=== PATIENT | male | born 1970 | race Two or more races ===

== ENCOUNTER 2022-06-13 13:10 | Inpatient (IN) | payer OTHER, BC ==
[~2022-06-13 13:10] MED LIST: Iopamidol 370 76% 100 ML VIAL ONE
[2022-06-13] MEDS ORDERED: CEFAZOLIN 1 GM VIAL ONE (13:43)
[2022-06-13] MEDS ORDERED: Boostrix 0.5 ML (Tdap) VIAL (>/=7 yrs of age) ONE (13:43)
[2022-06-13] MEDS ORDERED: Ondansetron PF 4 MG/2 ML Vial ONE (13:43)
[2022-06-13 14:15] LABS: #Eosinphils 0.2 thou/uL (0.0-0.7); #Monocytes 0.9 thou/uL (0.11-0.59); #Neutrophils 9.5 thou/uL (1.40-6.50); %Basophils 0.2 % (0.0-1.0); %Eosinophils 1.5 % (0.0-10.0); %Monocytes 6.6 % (0.0-10.0); %Neutrophils 69.7 % (42.0-75.0); Hemoglobin 14.6 g/dL (14.0-18.0); Mean Corpuscular HGB CONC 34.6 g/dL (32.0-36.0); Mean Corpuscular Hemoglobin 32.3 pg (27.0-31.0); Mean Corpuscular Volume 93.5 fl (78.0-98.0); Mean Platelet Volume 7.9 fL (7.4-10.4); Platelet Count 196 10x3/uL (130-400); RBC Distribution Width 11.9 % (11.5-14.5); Red Blood Cell (RBC) Count 4.53 mill/uL (4.70-6.10); White Blood Cell (WBC) Count 13.6 10x3/uL (4.8-10.8)
[2022-06-13 14:24] LABS: INR-International Normal Ratio 1.1; PTT 26.2 sec (22.9-36.1); Prothrombin Time 14.3 sec (12.0-14.7)
[2022-06-13 14:35] LABS: ALT (SGPT) 17 U/L (8-55); AST (SGOT) 24 U/L (5-34); Albumin 3.7 g/dL (3.5-5.0); Alkaline Phosphatase 82 U/L (40-110); Anion Gap 12 mmol/L (10-20); BUN (Urea Nitrogen) 17 mg/dL (8.4-25.7); Bilirubin, Total 0.9 mg/dL (0.2-1.2); Calc. Creatinine Clearance 0 mL/min (70-130); Calcium 8.4 mg/dL (7.8-10.44); Carbon Dioxide 22 mmol/L (22-29); Chloride 110 mmol/L (98-107); Estimated GFR 88; Globulin 2.7 g/dL (2.4-3.5); Glucose 93 mg/dL (70-105); Potassium 3.6 mmol/L (3.5-5.1); Protein, Total 6.4 g/dL (6.0-8.3); Sodium 140 mmol/L (136-145)
[2022-06-13] MEDS ORDERED: Ipratropium/Albuterol 3 ML NEB NEB PRN (14:51)
[2022-06-13] MEDS ORDERED: Cyclobenzaprine 10 MG TAB PO PRN (14:51)
[2022-06-13] MEDS ORDERED: Lactated Ringer's 1,000 ML IV SCH (15:00)
[2022-06-13] MEDS ORDERED: Acetaminophen 500 MG TAB PO SCH (15:00)
[2022-06-13] MEDS ORDERED: Fentanyl 100 MCG/2 ML VIAL ONE (15:14)
[2022-06-13] MEDS ORDERED: TETANUS, DIPHTHERIA TOX,ADULT (TDVAX) 0.5 ML VIAL IM ONE (16:37)
[2022-06-13] MEDS ORDERED: Ondansetron PF 4 MG/2 ML Vial IVP PRN (16:37)
[2022-06-13 16:53] LABS: Bilirubin Negative (Negative); Blood, Urine Negative (Negative); Clarity Clear (Clear); Glucose, Urine (Dipstick) Normal (Negative); Ketone, Urine Negative (Negative); Leukocyte Negative Leu/uL (Negative); Nitrite Negative (Negative); Protein, Urine (Dipstick) Negative (Neg-Trace); Specific Gravity, Urine 1.046 (1.002-1.036); Urobilinogen Normal mg/dL (Less than 2)
[2022-06-13] MEDS: traMADol HCl 50 MG TAB PO SCH ×2 (18:22→22:54)
[2022-06-13] MEDS: Sodium Chloride 0.9% 1,000 ML IV SCH (18:22)
[2022-06-13] MEDS: Famotidine/PF 20 mg/2ml Vial SLOW IVP SCH (20:29)
[2022-06-13] MEDS: Morphine 2 MG/ML VIAL SLOW IVP PRN ×2 (20:30→22:55)
[2022-06-13] MEDS: Senokot S 8.6-50 MG TAB PO SCH (22:40)
[2022-06-13] MEDS: traMADol HCl 50 MG TAB PO PRN (22:55)
[2022-06-14] MEDS ORDERED: Cyclobenzaprine 10 MG TAB PO PRN (00:19)
[2022-06-14] MEDS ORDERED: Ketorolac Tromethamine 30 MG/ML VIAL IVP SCH (00:30)
[2022-06-14] MEDS: Morphine 2 MG/ML VIAL SLOW IVP PRN (00:31)
[2022-06-14 01:06] LABS: SARS-CoV-2 NAA Rapid Test Not Detected (NotDetected)
[2022-06-14] MEDS: Sodium Chloride 0.9% 1,000 ML IV SCH (02:53)
[2022-06-14] MEDS: traMADol HCl 50 MG TAB PO SCH ×3 (05:53→18:16)
[2022-06-14] MEDS: traMADol HCl 50 MG TAB PO PRN (05:53)
[2022-06-14] MEDS: Ketorolac Tromethamine 30 MG/ML VIAL IVP SCH ×3 (05:54→18:16)
[2022-06-14 06:45] LABS: #Eosinphils 0.1 thou/uL (0.0-0.7); #Lymphocytes 1.8 thou/uL (1.20-3.40); #Neutrophils 6.1 thou/uL (1.40-6.50); %Basophils 0.2 % (0.0-1.0); %Eosinophils 1.7 % (0.0-10.0); %Lymphocytes 19.5 % (21.0-51.0); %Monocytes 10.8 % (0.0-10.0); %Neutrophils 67.7 % (42.0-75.0); Hemoglobin 13.5 g/dL (14.0-18.0); Mean Corpuscular HGB CONC 33.7 g/dL (32.0-36.0); Mean Corpuscular Hemoglobin 31.9 pg (27.0-31.0); Mean Corpuscular Volume 94.6 fl (78.0-98.0); Mean Platelet Volume 7.6 fL (7.4-10.4); Platelet Count 178 10x3/uL (130-400); Red Blood Cell (RBC) Count 4.22 mill/uL (4.70-6.10)
[2022-06-14 07:12] LABS: Anion Gap 11 mmol/L (10-20); BUN (Urea Nitrogen) 15 mg/dL (8.4-25.7); Calc. Creatinine Clearance 111 mL/min (70-130); Carbon Dioxide 22 mmol/L (22-29); Chloride 109 mmol/L (98-107); Estimated GFR 80; Glucose 99 mg/dL (70-105); Magnesium 1.8 mg/dL (1.6-2.6); Phosphorus 3.6 mg/dL (2.3-4.7); Potassium 3.6 mmol/L (3.5-5.1); Sodium 138 mmol/L (136-145)
[2022-06-14] MEDS: Senokot S 8.6-50 MG TAB PO SCH ×2 (09:50→21:33)
[2022-06-14] MEDS: Gabapentin 300 MG CAP PO SCH ×3 (09:50→21:32)
[2022-06-14] MEDS: Famotidine/PF 20 mg/2ml Vial SLOW IVP SCH ×2 (09:50→21:32)
[2022-06-14] MEDS: Polyethylene Glycol 3350 17 GM Packet PO SCH (09:50)
[2022-06-14] MEDS ORDERED: Bacitracin 1 PK TOP SCH (10:00)
[2022-06-14] MEDS: CEFAZOLIN 2 GM in Sodium Chloride 0.9% 100 ML IVPB SCH ×2 (14:37→21:33)
[2022-06-14] MEDS: Silver Sulfadiazine 50 GM JAR TP SCH (14:38)
[2022-06-14] MEDS ORDERED: Scopolamine 1.5 mg/72 hour Patch TD SCH (17:30)
[2022-06-15] MEDS: traMADol HCl 50 MG TAB PO SCH ×5 (00:02→23:10)
[2022-06-15] MEDS: Ketorolac Tromethamine 30 MG/ML VIAL IVP SCH ×2 (00:02→05:44)
[2022-06-15] MEDS: CEFAZOLIN 2 GM in Sodium Chloride 0.9% 100 ML IVPB SCH ×3 (05:46→23:06)
[2022-06-15] MEDS: Bacitracin 1 PK TOP SCH (09:42)
[2022-06-15] MEDS: Gabapentin 300 MG CAP PO SCH ×3 (09:42→20:25)
[2022-06-15] MEDS: Famotidine 20 MG TAB PO SCH ×2 (09:42→20:25)
[2022-06-15] MEDS: Senokot S 8.6-50 MG TAB PO SCH ×2 (09:43→20:25)
[2022-06-15] MEDS: Polyethylene Glycol 3350 17 GM Packet PO SCH (09:43)
[2022-06-15] MEDS: Silver Sulfadiazine 50 GM JAR TP SCH (09:44)
[2022-06-15] MEDS: Ibuprofen 200 MG TAB PO SCH ×2 (15:12→23:08)
[2022-06-16] MEDS: Ibuprofen 200 MG TAB PO SCH ×2 (05:56→15:52)
[2022-06-16] MEDS: traMADol HCl 50 MG TAB PO SCH ×2 (05:57→11:24)
[2022-06-16] MEDS: Polyethylene Glycol 3350 17 GM Packet PO SCH (09:21)
[2022-06-16] MEDS: Famotidine 20 MG TAB PO SCH (09:21)
[2022-06-16] MEDS: Bacitracin 1 PK TOP SCH (09:22)
[2022-06-16] MEDS: Gabapentin 300 MG CAP PO SCH ×2 (09:22→15:51)
[2022-06-16] MEDS: Senokot S 8.6-50 MG TAB PO SCH (09:22)
[2022-06-16] MEDS: Silver Sulfadiazine 50 GM JAR TP SCH (11:27)
[2022-06-16 16:16] VITALS: BP 116/74; TEMP 98.2
[2022-06-17] MEDS ORDERED: FLU VACC QS2022-23(6MOS UP)/PF 60 MCG/0.5 ML SYRINGE IM ONE (09:00)
== END 2022-06-16 17:20 | disposition home or self-care (01) | DRG 563 ==
LOC: ERS 13:10 → SURG B 16:22
PROVIDERS: ADMIT Surgery; ATTEND Surgery
PROC: 2W3RX1Z Immobilization of Left Lower Leg using Splint (ICD-10-PCS; principal; 2022-06-13)
DX: S92.152A Displaced avulsion fracture (chip fracture) of left talus, initial encounter for closed fracture (principal); H05.20 Unspecified exophthalmos; S30.810A Abrasion of lower back and pelvis, initial encounter; S81.011A Laceration without foreign body, right knee, initial encounter; H05.232 Hemorrhage of left orbit; Z20.822 Contact with and (suspected) exposure to COVID-19; V29.498A Other motorcycle driver injured in collision with other motor vehicles in traffic accident, initial encounter; Y92.89 Other specified places as the place of occurrence of the external cause; S83.194A Other dislocation of right knee, initial encounter
CPT/HCPCS: 36415; 70450; 70486; 71260; 72125; 74177; 80048; 80053; 81003; 83735; 84100; 85025; 85610; 85730; 90715; 93005; 93010; 97139; G0390; J0690; J1650; J1885; J2272; J2405; J3010; J3490; J7050; Q9967; S0028; U0002